=== PATIENT | female | born 1950 | race Caucasian/White ===

== ENCOUNTER → 2018-06-18 12:47 | Outpatient (CLI) | payer OTHER, SELFPAY ==
[2018-06-18 14:16] LABS: Erythrocyte Sedimentation Rate 7 MM/HR (0-20)
[2018-06-18 15:05] LABS: C-Reactive Protein Quant 0.6 mg/dL (<1.0); Uric Acid 5.3 mg/dL (2.5-6.2)
[2018-06-18 15:15] LABS: Rheumatoid Factor 168.2 IU/mL (<12.0)
[2018-06-20 14:46] LABS: HLA B27 NEGATIVE (Negative)
[2018-06-20 19:45] LABS: ANA Screen, IFA Negative (Negative)
== END ==
PROVIDERS: PCP Internal Medicine; Visit Provider Podiatrist
DX: M76.62 Achilles tendinitis, left leg (principal); M79.671 Pain in right foot
CPT/HCPCS: 36415; 84550; 85651; 86038; 86140; 86430; 86812

== ENCOUNTER → 2024-02-23 11:50 | Outpatient (CLI) | payer MEDICARE, OTHER, SELFPAY ==
--- NOTE | 2024-02-23 11:53 | DI.RAD.S_ITS ---
PROCEDURE: XR HAND LT MIN 3V INDICATIONS: pain, swelling to 1st 2nd digits acute on chronic TECHNIQUE: 3 views of the hand(s) acquired. COMPARISON: None. FINDINGS: Bones: Osteopenia. 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 DJD of the 1st and 2nd distal interphalangeal joints also present. No acute fracture or subluxation seen. Soft tissues: No radiographically evident soft tissue swelling. IMPRESSION: Degenerative changes as noted above No acute bony abnormality. Dictated by: Rocael Rojas M.D. on 02/23/2024 at 15:34 Approved by: Rocael Rojas M.D. on 02/23/2024 at 15:37
--- NOTE | 2024-02-23 11:53 | DI.RAD.S_ITS ---
PROCEDURE: XR HAND RT MIN 3V INDICATIONS: B/L pain, swelling to 1st 2nd digits acute on chronic TECHNIQUE: 3 views of the hand(s) acquired. COMPARISON: [facility], CR, XR HAND LT MIN 3V, 02/23/2024, 10:59. FINDINGS: Bones: No acute fracture or subluxation seen. Severe degenerative changes of the 1st carpometacarpal joint and mild to moderate DJD the 1st and 2nd distal interphalangeal joints noted. Soft tissues: No radiographically evident soft tissue swelling. IMPRESSION: Degenerative changes as noted above No acute osseous abnormality Dictated by: Rocael Rojas M.D. on 02/23/2024 at 15:37 Approved by: Rocael Rojas M.D. on 02/23/2024 at 15:41
[2024-02-23 12:53] LABS: Add Manual Diff / Slide Review NO; Basophils Absolute Auto 100 /uL (0-100); Basophils Percent Auto 0.7 % (0-2); Eosinophils Absolute Auto 300 /uL (0-450); Eosinophils Percent Auto 4.5 % (2-4); Hematocrit 36.1 % (36-46); Hemoglobin 12.5 g/dL (12.0-16.0); Lymphocytes Absolute Auto 1900 /uL (1100-4500); Lymphocytes Percent Auto 25.1 % (25-40); Mean Corpuscular HGB Conc 34.7 % (30-36); Mean Corpuscular Hemoglobin 33.1 PG (26-34); Mean Corpuscular Volume 95.6 fL (80-100); Monocytes Absolute Auto 700 /uL (0-900); Monocytes Percent Auto 9.1 % (3-14); Neutrophils Absolute Auto 4700 /uL (1500-7000); Neutrophils Percent Auto 60.6 % (50-75); Platelet Count 376 X10^3/uL (150-400); Red Blood Cell Count 3.78 X10^6/uL (4.0-5.2); Red Cell Distribution Width 13.7 % (11.6-14.8); White Blood Cell Count 7.7 X10^3/uL (4.5-11.0)
[2024-02-23 13:15] LABS: Alanine Aminotransferase 19 IU/L (<35); Albumin 4.3 g/dL (3.5-5.0); Albumin Globulin Ratio 1.7 (1.0-2.8); Alkaline Phosphatase 91 U/L (38-126); Aspartate Aminotransferase 24 IU/L (14-36); BUN Creatinine Ratio 15.8 (6-22); Bilirubin Total 0.9 mg/dL (0.2-1.3); Blood Urea Nitrogen 18 mg/dL (7-17); Calcium 10.1 mg/dL (8.4-10.2); Carbon Dioxide 27 mmol/L (22-32); Chloride 105 mmol/L (98-107); Estimated Glomerular Filt Rate 51 mL/min (>60); Globulin 2.6 g/dL (1.7-4.1); Glucose 92 mg/dL (80-110); HEMOLYSIS < 15 (0-50); Potassium 3.9 mmol/L (3.4-5.1); Sodium 139 mmol/L (137-145); Total Protein 6.9 g/dL (6.3-8.2); Uric Acid 6.3 mg/dL (2.5-6.2)
[2024-02-23 13:23] LABS: Erythrocyte Sedimentation Rate 19 MM/HR (0-20)
== END ==
PROVIDERS: PCP Family Medicine; Referring Provider Physician Assistant; Visit Provider Physician Assistant
DX: M18.12 Unilateral primary osteoarthritis of first carpometacarpal joint, left hand (principal); M19.042 Primary osteoarthritis, left hand; M19.041 Primary osteoarthritis, right hand; M79.641 Pain in right hand; M79.642 Pain in left hand
CPT/HCPCS: 36415; 73130; 80053; 84550; 85025; 85651

== ENCOUNTER → 2024-02-25 15:29 | Outpatient (CLI) | payer MEDICARE, OTHER, SELFPAY ==
[2024-02-25 18:22] LABS: Rheumatoid Factor 443.6 IU/mL (<12.0)
== END ==
LOC: LAB 15:30
PROVIDERS: PCP Family Medicine; Referring Provider Physician Assistant; Visit Provider Physician Assistant
DX: M10.9 Gout, unspecified (principal)
CPT/HCPCS: 36415; 86200; 86430